=== PATIENT | female | born 1945 | race Native Hawaiian/Other Pacific Islander ===

== ENCOUNTER 2022-01-11 10:57 | Outpatient (CLI) | payer OTHER, BC ==
[~2022-01-11 10:57] MED LIST: ALPR0.5T24 PO; ESTRACE0.5 MG PO; GABA300C2 PO; LISITAB PO
[2022-01-11 11:48] LABS: PLATELET COUNT 340 K/uL (152-353)
[2022-01-11 12:13] LABS: POTASSIUM 4.7 mmol/L (3.6-5.2)
== END 2022-01-11 19:13 | disposition home or self-care (01) ==
LOC: LABW 10:57
PROVIDERS: ATTEND Internal Medicine
DX: I10 Essential (primary) hypertension (principal); R53.83 Other fatigue; Z79.899 Other long term (current) drug therapy; E55.9 Vitamin D deficiency, unspecified; R79.89 Other specified abnormal findings of blood chemistry
CPT/HCPCS: 36415; 80053; 80061; 81000; 82043; 82306; 82570; 82607; 82728; 82746; 83036; 83540; 83550; 83735; 84100; 84156; 84439; 84443; 85027; 85652; 86038

== ENCOUNTER 2022-01-12 14:41 | Outpatient (CLI) | payer OTHER, BC | END 2022-01-12 19:25 | disposition home or self-care (01) | LOC: MRI 14:41 | PROVIDERS: ATTEND Internal Medicine | DX: R41.3 Other amnesia (principal); R53.83 Other fatigue | CPT/HCPCS: A9576 ==

== ENCOUNTER 2022-01-13 08:42 | Outpatient (CLI) | payer OTHER, BC | END 2022-01-13 19:26 | disposition home or self-care (01) | LOC: MRI 08:42 | PROVIDERS: ATTEND Internal Medicine | DX: R41.3 Other amnesia (principal); R53.83 Other fatigue; R41.82 Altered mental status, unspecified ==

== ENCOUNTER 2022-02-22 08:56 | Outpatient (CLI) | payer OTHER, BC | END 2022-02-22 18:57 | disposition home or self-care (01) | LOC: CT 08:56 | PROVIDERS: ATTEND Internal Medicine | DX: R55 Syncope and collapse (principal) | CPT/HCPCS: 36415; 82565; 84520; Q9963 ==

== ENCOUNTER 2022-03-14 15:59 | Outpatient (CLI) | payer OTHER, BC ==
[2022-03-14 16:58] LABS: PLATELET COUNT 317 K/uL (152-353)
[2022-03-14 18:06] LABS: POTASSIUM 3.7 mmol/L (3.6-5.2)
== END 2022-03-14 19:15 | disposition home or self-care (01) ==
LOC: LABW 15:59
PROVIDERS: ATTEND Internal Medicine
DX: I12.9 Hypertensive chronic kidney disease with stage 1 through stage 4 chronic kidney disease, or unspecified chronic kidney disease (principal); N18.2 Chronic kidney disease, stage 2 (mild)
CPT/HCPCS: 36415; 80053; 80061; 81002; 82043; 82306; 82330; 82550; 82570; 83735; 83970; 84100; 84156; 84550; 85027